=== PATIENT | male | born 1960 | race Two or more races ===

== ENCOUNTER 2018-10-17 05:40 | Inpatient (IN) ==
[~2018-10-17] VITALS: Ht 185.4 cm; Wt 132.4 kg
[2018-10-17 06:29] VITALS: BP 156/89
--- NOTE | 2018-10-17 07:30 | NUR ---
RN NOTES RECEIVED PATIENT IN BED, PACING AT THE BEDSIDE, A/O X4, ABLE TO MAKE NEEDS KNOWN, BREATHING UNLABORED, WITH COMPLAINTS OF PAIN- WILL ADMINISTER PRN MEDICATION IF STANDING ORDER IS AVAILABLE, IV ACCESS ON THE R HAND G 20: IN PLACE AND INTACT, PATENT ON FLUSHING. PATIENT ENCOURAGE TO CALL FOR HELP AND ASSISTANCE, CALL LIGHT PLACED WITHIN REACH, SAFETY MEASURES OBSERVED AND MAINTAINED, BED LOW AND LOCKED POSITION, SRX2 RAISED, WILL CONTINUE TO MONITOR AND ANTICIPATE NEEDS
[2018-10-17] MEDS ORDERED: AMLO10TA7 PO (07:44)
[2018-10-17 08:00] VITALS: BP_SYST 148; BP_SYST 158; BP_SYST 162; BP_DIAS 107; BP_DIAS 82; BP_DIAS 92
[2018-10-17] MEDS ORDERED: TRANEXAMIC ACID 1,500 MG in IV NS 0.9% 50 ML IV ONE (08:00)
--- NOTE | 2018-10-17 10:15 | NUR ---
RN NOTES PATIENT TRANSPORTED TO OR FOR THE SCHEDULED SURGERY. PATIENT NOT ON ANY FORM OF DISTRESS. AMBULATORY.
[2018-10-17] MEDS ORDERED: FENTANYL PF 250MCG/5ML AMPUL ONE (12:11)
[2018-10-17] MEDS ORDERED: MIDAZOLAM HCL 2 MG/2ML VIAL ONE (12:11)
[2018-10-17] MEDS ORDERED: ROCURONIUM BROMIDE 50 MG/5 ML ONE (12:12)
[2018-10-17] MEDS ORDERED: FAMOTIDINE/PF INJ 20 MG/2 ML VIAL IV ONE (12:12)
[2018-10-17] MEDS ORDERED: BUPIVACAINE 0.25% 75 MG/30 ML VIAL ONE (12:15)
[2018-10-17] MEDS ORDERED: BUPIVACAINE MPF 0.5% W/EPI INJ 30 ML VIAL ONE (12:19)
[2018-10-17] MEDS ORDERED: KETOROLAC TROMETHAMINE INJ 30 MG/ML VIAL ONE ×2 (12:19→16:16)
[2018-10-17] MEDS ORDERED: BACITRACIN 50000 UNITS/VIAL ONE (12:19)
[2018-10-17] MEDS ORDERED: MORPHINE SULFATE INJ 4 MG/ML DISP.SYRIN ONE (12:19)
[2018-10-17] MEDS ORDERED: CEFAZOLIN 2 GM ONE (13:24)
[2018-10-17] MEDS ORDERED: CEFAZOLIN 1 GM ONE (13:24)
[2018-10-17] MEDS ORDERED: oxyCODONE HCL SR 10MG TAB.SR.12H PO ONE (16:28)
[2018-10-17] MEDS ORDERED: KETOROLAC TROMETHAMINE INJ 30 MG/ML VIAL IV ONE (17:00)
[2018-10-17] MEDS ORDERED: oxyCODONE IR immediate release 5 MG PO ONE (17:00)
[2018-10-17] MEDS ORDERED: ASPIRIN 325 MG TABLET PO ONE (17:00)
[2018-10-17] MEDS ORDERED: hydrALAZINE HCL IV 20 MG VIAL ONE (17:24)
[2018-10-17] MEDS ORDERED: FENTANYL PF 100MCG/2ML AMPUL ONE (17:29)
[2018-10-17 18:00] VITALS: BP 124/64
--- NOTE | 2018-10-17 18:30 | NUR ---
RN NOTES PATIENT CAME BACK FROM OR, AWAKE AND ORIENTED,ABLE TO MAKE NEEDS KNOWN, SURGICAL SITE WITH DRESSING IN PLACE, DRY AND INTACT, NO BLEEDING NOTED. VITAL SIGNS TAKEN AND NOTED. ALL POST OPERATION ORDERS NOTED AND CARRIED OUT. WILL ANTICIPATE NEEDS AND CONTINUE TO MONITOR
--- NOTE | 2018-10-17 19:53 | NUR ---
RN NOTES ENDORSED PATIENT FOR CONTINUITY OF CARE. NOT ON ANY FORM OF DISTRESS, ALL NURSING NEEDS ATTENDED AND MET. SAFETY MEASURES IN PLACE AT ALL TIMES. CALL LIGHT PLACED WITHIN REACH
[2018-10-17 20:00] VITALS: BP 118/69
[2018-10-17] MEDS ORDERED: MAGNESIUM HYDROXIDE 30 ML UDC PO PRN (20:00)
[2018-10-17] MEDS ORDERED: ONDANSETRON HCL/PF 4 MG/2 ML VIAL IVP PRN (20:00)
[2018-10-17] MEDS ORDERED: IV D5/0.45 NACL 1,000 ML IV PRN (20:00)
[2018-10-17] MEDS ORDERED: HYDROCODONE/APAP 5/325MG 1 EACH TABLET PO PRN (20:00)
[2018-10-17] MEDS ORDERED: BISACODYL SUPP (10 MG) 10 MG/SUPP.RECT SUPP.RECT RC PRN (20:00)
[2018-10-17] MEDS ORDERED: HYDROMORPHONE 1 MG/1 ML DISP.SYRIN IV PRN (20:00)
[2018-10-17] MEDS ORDERED: ZOLPIDEM TARTRATE 5 MG TABLET PO PRN (20:00)
[2018-10-17] MEDS ORDERED: ACETAMINOPHEN 325 MG TABLET PO PRN (20:00)
[2018-10-17] MEDS ORDERED: DOCUSATE SODIUM 100 MG CAPSULE PO PRN (20:00)
[2018-10-17] MEDS: KETOROLAC TROMETHAMINE INJ 30 MG/ML VIAL IV SCH (20:53)
[2018-10-18] MEDS: KETOROLAC TROMETHAMINE INJ 30 MG/ML VIAL IV SCH ×3 (02:25→13:28)
[2018-10-18 04:00] VITALS: BP_SYST 123; BP_DIAS 63; BP_DIAS 69
--- NOTE | 2018-10-18 06:19 | NUR ---
RN NOTES RECEIVED PATIENT AWAKE IN BED WATCHING TV WITH NO DISTRESS NOTED. BREATHING EVEN AND UNLABORED. ALERT AND ORIENTED, VERBALLY ABLE TO COMMUNICATE NEEDS. COMPLAINT OF LEFT SHHOULDER PAIN. ON ROUTINE TORADOL, GIVEN WITH RELIEF. SLEPT GOOD. FOR DC IN AM. NEEDS ATTENDED, KEPT CLEAN AND DRY. WILL ENDORSE TO NEXT SHIFT FOR CONTINUITY OF CARE.
--- NOTE | 2018-10-18 07:31 | NUR ---
MS/RN OPENING NOTE PATIENT IN BED IN STABLE CONDITION. A/O X 4. NO SIGNS OF ACUTE DISTRESS. NO COMPLAIN OF PAIN OR DISCOMFORT. ALL NEEDS ATTENDED TO AT THIS TIME. CALL LIGHT WITHIN REACH. WILL CONTINUE TO MONITOR TO ENSURE SAFETY.
[2018-10-18 08:00] VITALS: BP 119/71
[2018-10-18] MEDS: FERROUS SULFATE (325 MG) 325 MG/TAB TABLET PO SCH ×2 (08:16→13:28)
[2018-10-18] MEDS ORDERED: ASPIRIN EC 325 MG TABLET.DR PO SCH (09:00)
[2018-10-18] MEDS ORDERED: CELECOXIB 100 MG CAPSULE PO SCH (09:00)
[2018-10-18 10:05] LABS: BASOPHILS # (AUTO) 0.1 /CMM (0.0-0.2); BASOPHILS % (AUTO) 0.6 % (0.0-2.0); EOSINOPHILS % (AUTO) 2.2 % (0.0-6.0); HEMATOCRIT 44 % (39-51); HEMOGLOBIN 14.9 g/dL (13.5-17.5); LYMPHOCYTES # (AUTO) 1.4 /CMM (0.8-4.8); LYMPHOCYTES % (AUTO) 12.4 % (20.0-44.0); MEAN CORPUSCULAR HGB CONC 34 g/dl (31.0-36.0); MEAN CORPUSCULAR VOLUME 84 fL (80-96); MONOCYTES # (AUTO) 1.3 /CMM (0.1-1.30); MONOCYTES % (AUTO) 11.8 % (2.0-12.0); NEUTROPHILS # (AUTO) 8.1 /CMM (1.8-8.9); PLATELET COUNT (AUTO) 144 /CMM (150-450); RED BLOOD CELL COUNT(AUTO) 5.21 MIL/uL (4.5-6.0); WHITE BLOOD COUNT (AUTO) 11.1 K/uL (4.3-11.0)
[2018-10-18 11:37] LABS: CALCIUM, SERUM 8.5 mg/dL (8.5-10.1); CREATININE 1.1 mg/dL (0.6-1.3); POTASSIUM 3.7 mmol/L (3.5-5.1)
--- NOTE | 2018-10-18 14:15 | NUR ---
MS/REHABILITATION SERVICES COUNSELOR PATIENT DISCHARGE HOME IN STABLE CONDITION. A/O X 4. NO SIGNS OF ACUTE DISTRESS. NO COMPLAIN OF PAIN OR DISCOMFORT. DISCHARGE EDUCATION AND TEACHING PROVIDED, VERBALIZED UNDERSTANDING, MADE AWARE TO FOLLOW UP WITH DR REY TURPIN FOR POST OP FOLLOW UP, REY OFFICE NUMBER PROVIDED, PRESCRIPTION PROVIDED. NAME BAND AND IV LINE REMOVED. LEFT IN STABLE CONDITION VIA PRIVATE CAR ACCOMPANIED BY UNCLE.
== END 2018-10-18 14:15 | disposition home or self-care (01) | DRG 483 ==
LOC: DS 05:40 → MEDSG1 05:42
PROVIDERS: ADMIT Orthopaedic Surgery; ATTEND Hospitalist
DX: T84.028A Dislocation of other internal joint prosthesis, initial encounter (principal); Y83.9 Surgical procedure, unspecified as the cause of abnormal reaction of the patient, or of later complication, without mention of misadventure at the time of the procedure; Y92.89 Other specified places as the place of occurrence of the external cause; M25.312 Other instability, left shoulder; E78.5 Hyperlipidemia, unspecified; I10 Essential (primary) hypertension; K21.9 Gastro-esophageal reflux disease without esophagitis; E66.01 Morbid (severe) obesity due to excess calories; Z68.39 Body mass index [BMI] 39.0-39.9, adult; D72.829 Elevated white blood cell count, unspecified
CPT/HCPCS: 36415; 73020; 80048-TC; 85025-TC; 86850-TC; 88300-TC; A4216; A4565; A6209; G0378; J0360; J0690; J1885; J2250; J2270; J2405; J2704; J2710; J2765; J3010; J3490